=== PATIENT | male | born 1990 | race African-American/Black ===

== ENCOUNTER 2019-05-27 17:49 | Inpatient (IN) | payer OTHER ==
[2019-05-27 18:53] VITALS: BMI 36.8
--- NOTE | 2019-05-27 21:58 | HP ---
CIWA Score - Admission Criteria [facility]ASAS Guidelines: Admission for Medically Managed Detox: Requires at least one of the followin. CIWA greater than 12 2. Seizures within the past 24 hours 3. Delirium tremens within the past 24 hours 4. Hallucinations within the past 24 hours 5. Acute intervention needed for co occurring medical disorder 6. Acute intervention needed for co occurring psychiatric disorder 7. Severe withdrawal that cannot be handled at a lower level of care (continued vomiting, continued diarrhea, abnormal vital signs) requiring intravenous medication and/or fluids 8. Admission ROS [facility] - [facility] Chief Complaint: Seeking admission to Rehab. 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 Patient was transferred from [facility]. This is his first admission to [facility]. He reports prior Rehab. admission at [facility]. He reports medical history of Asthma, seizure, GERD, COPD and Psych history of Depression, anxiety and Bipolar 2. He reports suicide attempt in 2009, 2014 and denies suicidal ideation at this time. Exam Limitations: No Limitations - Ebola screening Have you traveled outside of the country in the last 21 days: No (N) Have you had contact with anyone from an Ebola affected area: No Do you have a fever: No - Review of Systems Constitutional: No Symptoms Reported EENT: reports: No Symptoms Reported Respiratory: reports: No Symptoms reported Cardiac: reports: No Symptoms Reported GI: reports: No Symptoms Reported : reports: No Symptoms Reported Musculoskeletal: reports: No Symptoms Reported Integumentary: reports: No Symptoms Reported Neuro: reports: No Symptoms reported Endocrine: reports: No Symptoms Reported Hematology: reports: No Symptoms Reported Psychiatric: reports: No Sypmtoms Reported, Mood/Affect Appropiate Other Systems: Reviewed and Negative Patient History - Patient Medical History Hx Anemia: No Hx Asthma: Yes (Albuterol) Hx Chronic Obstructive Pulmonary Disease (COPD): Yes (Not on medication) Hx Cancer: No Hx Cardiac Disorders: No Hx Hypertension: No Hx Hypercholesterolemia: No HX Cerebrovascular Accident: No Hx Seizures: Yes (Not on medication) Hx Diabetes: No Hx Gastrointestinal Disorders: Yes Hx Liver Disease: No Hx Genitourinary Disorders: No Hx Sexually Transmitted Disorders: No Hx Renal Disease (ESRD): No Hx Thyroid Disease: No Hx Human Immunodeficiency Virus (HIV): No (Negative -) Hx Hepatitis C: No Hx Depression: Yes (Not on medication) Hx Suicide Attempt: Yes (Attempts in 2009, 2014. Denies suicidal ideation at this time) Hx Bipolar Disorder: Yes Hx Schizophrenia: No Other Medical History: Anxiety - Patient Surgical History Past Surgical History: No Hx Neurologic Surgery: No Hx Cataract Extraction: No Hx Cardiac Surgery: No Hx Lung Surgery: No Hx Abdominal Surgery: No Hx Appendectomy: No Hx Cholecystectomy: No Hx Genitourinary Surgery: No Hx Orthopedic Surgery: No Anesthesia Reaction: No - PPD History Previous Implant?: Yes (PPD POSITIVE. INH FOR 9 MONTHS) Documented Results: Positive w/o proof Implanted On Prior [facility] Admission?: No PPD to be Administered?: No - Reproductive History Patient is a Female of Child Bearing Age (11 -55 yrs old): No (male) - Smoking Cessation Smoking history: Current every day smoker Have you smoked in the past 12 months: Yes Aproximately how many cigarettes per day: 6 Hx Chewing Tobacco Use: No Initiated information on smoking cessation: Yes 'Breaking Loose' booklet given: 05/27/19 - Substance & Tx. History Hx Alcohol Use: No Hx Substance Use: Yes Substance Use Type: Tranquilizers Hx Substance Use Treatment: Yes ([place], [place]) - Substances abused Methamphetamine Other (specify): crystal meth Substance route: Smoking Frequency: Daily Amount used: $200 Age of first use: 19 Date of last use: 05/26/19 Admission Physical Exam BHS - Vital Signs Vital Signs: Vital Signs - 24 hr 05/27/19 18:45 Temperature 97.1 F L Pulse Rate 108 H Respiratory 20 Rate Blood Pressure 120/67 - Physical General Appearance: Yes: Within Normal Limits HEENTM: Yes: Within Normal Limits, EOMI Respiratory: Yes: Lungs Clear, Normal Breath Sounds, No Respiratory Distress Neck: Yes: Within Normal Limits Cardiology: Yes: Tachycardia Abdominal: Yes: Normal Bowel Sounds, Soft Genitourinary: Yes: Within Normal Limits Back: Yes: Normal Inspection Musculoskeletal: Yes: Within Normal Limits Extremities: Yes: Normal Inspection, Normal Range of Motion Neurological: Yes: Within Normal Limits Integumentary: Yes: Within Normal Limits, Warm Lymphatic: Yes: Within Normal Limits - Diagnostic (1) Amphetamine dependence Current Visit: Yes Status: Acute (2) Seizure Current Visit: Yes Status: Chronic (3) Asthma Current Visit: Yes Status: Chronic Qualifiers: Asthma severity: mild Asthma persistence: intermittent (4) GERD (gastroesophageal reflux disease) Current Visit: Yes Status: Chronic Qualifiers: Esophagitis presence: without esophagitis Qualified Code(s): K21.9 - Gastro -esophageal reflux disease without esophagitis (5) COPD (chronic obstructive pulmonary disease) Current Visit: Yes Status: Chronic Qualifiers: Chronic bronchitis type: unspecified (6) PPD positive, treated Current Visit: No Status: Resolved Cleared for Admission S - Detox or Rehab [facility] Level of Care: Observation Bed Claeared for Rehab Admission: Yes Breathalyzer - Breathalyzer Breathalyzer: 0 Urine Drug Screen - Test Device Lot number: [id number] Expiration date: 01/21/21 - Control Is test valid?: Yes - Results Drug screen NEGATIVE: No Urine drug screen results: MET-Methamphetamine, AMP-Amphetamines Inpatient Rehab Admission - Rehab Decision to Admit Inpatient rehab admission?: Yes - Initial Determination Are CD services needed?: No Free of communicable disease: Yes Not in need of hospitalization: Yes - Rehab Admission Criteria Previous failed treatment: Yes Poor recovery environment: Yes Comorbidities: Yes Lacks judgement: No Patient is meeting Inpatient Rehab admission criteria:: Yes
[2019-05-27] MEDS ORDERED: ACETAMINOPHEN 325 MG TABLET (FP) PO PRN (22:15)
[2019-05-27] MEDS ORDERED: NICOTINE POLACRILEX 2 MG GUM BUC PRN (22:15)
[2019-05-27] MEDS ORDERED: P-EPHED 60MG/TRIPROLIDI 2.5MG TABLET PO PRN (22:15)
[2019-05-27] MEDS ORDERED: LOPERAMIDE HCL 2 MG CAPSULE PO PRN (22:15)
[2019-05-27] MEDS ORDERED: MAGNESIUM HYDROX 2400MG/30ML ORAL SUSPENSION 30 ML CUP PO PRN (22:15)
[2019-05-27] MEDS ORDERED: MENTHOL/PHENOL 1 EACH UD MM PRN (22:15)
[2019-05-27] MEDS ORDERED: guaiFENesin 200 MG/10 ML 10 ML UNIT-DOSE CUPS PO PRN (22:15)
[2019-05-27] MEDS ORDERED: MAGNESIUM CITRATE 300 ML BOTTLE PO PRN (22:15)
[2019-05-28 10:34] LABS: EPI CELLS 1.3 /HPF (0-5/HPF); HYALINE CASTS 19 /lpf (0-8); PH,URINE 6.5 (5.0-8.0); URINE APPEARANCE CLEAR; URINE BACTERIA 3.3 /hpf (NEGATIVE); URINE BILIRUBIN NEGATIVE (NEGATIVE); URINE COLOR YELLOW; URINE GLUCOSE (UA) NEGATIVE (NEGATIVE); URINE KETONE NEGATIVE (NEGATIVE); URINE LEUK ESTERASE TRACE (NEGATIVE); URINE NITRITE NEGATIVE (NEGATIVE); URINE PROTEIN TRACE (NEGATIVE); URINE RBC 3 /hpf (0-4); URINE UROBILINOGEN 0.2 mg/dL (0.2-1.0); URINE WBC 9 /hpf (0-5)
--- NOTE | 2019-05-28 10:35 | EKG ---
Test Reason : Blood Pressure : / mmHG Vent. Rate : 088 BPM Atrial Rate : 088 BPM P-R Int : 142 ms QRS Dur : 086 ms QT Int : 330 ms P-R-T Axes : 051 032 040 degrees QTc Int : 399 ms NORMAL SINUS RHYTHM WITH SINUS ARRHYTHMIA EARLY REPOLARIZATION NORMAL ECG NO PREVIOUS ECGS AVAILABLE Confirmed by PHYLLIS BLANC MD ([id number]) on 05/28/2019 10:34:49 AM Referred By: Confirmed By:PHYLLIS BLANC MD
[2019-05-28] MEDS: PRENATAL VITAMINS W/ FOLIC ACID TABLET (FP) PO SCH (10:45)
[2019-05-28] MEDS: NICOTINE 14 MG/24 HOURS TOPICAL PATCH TD SCH (10:45)
[2019-05-28 11:17] LABS: URINE CRYSTALS CALCIUM OXALATE=1+ /hpf
[2019-05-28] MEDS: THIAMINE HCL 100 MG TABLET (FP) PO SCH (21:11)
[2019-05-28] MEDS: MELATONIN 5 MG TABLETS PO PRN (21:11)
[2019-05-29] MEDS: NICOTINE 14 MG/24 HOURS TOPICAL PATCH TD SCH (09:32)
[2019-05-29] MEDS: PRENATAL VITAMINS W/ FOLIC ACID TABLET (FP) PO SCH (09:32)
[2019-05-29 12:20] LABS: HEMATOCRIT 43.6 % (35.4-49); HEMOGLOBIN 14.6 GM/dL (11.7-16.9); MCH 29.5 pg (25.7-33.7); MCHC 33.4 g/dl (32.0-35.9); MEAN CELL VOLUME 88.2 fl (80-96); MEAN PLT VOLUME 8.3 fl (7.5-11.1); PLATELET COUNT 210 K/MM3 (134-434); RBC 4.94 M/mm3 (4.00-5.60); RDW 14.2 % (11.9-15.9)
[2019-05-29 12:41] LABS: ALBUMIN 3.2 g/dl (3.4-5.0); BILIRUBIN,TOTAL 0.2 mg/dL (0.2-1); BLOOD UREA NITROGEN 11.3 mg/dL (7-18); CALCIUM 8.8 mg/dL (8.5-10.1); CREATININE 0.9 mg/dL (0.55-1.3); POTASSIUM 4.6 mmol/L (3.5-5.1); TOT PROT 6.8 g/dl (6.4-8.2)
[2019-05-29] MEDS: MELATONIN 5 MG TABLETS PO PRN (21:35)
[2019-05-29] MEDS: THIAMINE HCL 100 MG TABLET (FP) PO SCH (21:35)
--- NOTE | 2019-05-30 08:54 | PN ---
[facility] Progress Note Note: Vital Signs Temperature 97.7 F 05/29/19 06:53 Pulse Rate 102 H 05/29/19 06:53 Respiratory Rate 18 05/30/19 03:30 Blood Pressure 130/76 05/29/19 06:53 O2 Sat by Pulse Oximetry (%) Laboratory Tests 05/28/19 05/29/19 05/29/19 08:15 09:15 09:15 WBC 5.0 RBC 4.94 Hgb 14.6 Hct 43.6 MCV 88.2 MCH 29.5 MCHC 33.4 RDW 14.2 Plt Count 210 MPV 8.3 Sodium 141 Potassium 4.6 Chloride 107 Carbon Dioxide 31 Anion Gap 3 L BUN 11.3 Creatinine 0.9 Est GFR (CKD-EPI)AfAm 132.37 Est GFR (CKD-EPI)NonAf 114.21 Random Glucose 83 Calcium 8.8 Total Bilirubin 0.2 AST 7 L ALT 19 Alkaline Phosphatase 62 Total Protein 6.8 Albumin 3.2 L Urine Color Yellow Urine Appearance Clear Urine pH 6.5 Ur Specific [place] 1.024 Urine Protein Trace Urine Glucose (UA) Negative Urine Ketones Negative Urine Blood Negative Urine Nitrite Negative Urine Bilirubin Negative Urine Urobilinogen 0.2 Ur Leukocyte Esterase Trace Urine WBC (Auto) 9 Urine RBC (Auto) 3 Urine Casts (Auto) 19 U Epithel Cells (Auto) 1.3 Urine Crystals (Auto) Calcium oxalate=1+ Urine Bacteria (Auto) 3.3 RPR Titer 05/29/19 09:15 WBC RBC Hgb Hct MCV MCH MCHC RDW Plt Count MPV Sodium Potassium Chloride Carbon Dioxide Anion Gap BUN Creatinine Est GFR (CKD-EPI)AfAm Est GFR (CKD-EPI)NonAf Random Glucose Calcium Total Bilirubin AST ALT Alkaline Phosphatase Total Protein Albumin Urine Color Urine Appearance Urine pH Ur Specific [place] Urine Protein Urine Glucose (UA) Urine Ketones Urine Blood Urine Nitrite Urine Bilirubin Urine Urobilinogen Ur Leukocyte Esterase Urine WBC (Auto) Urine RBC (Auto) Urine Casts (Auto) U Epithel Cells (Auto) Urine Crystals (Auto) Urine Bacteria (Auto) RPR Titer Nonreactive Labs reviewed. UA + calcium Oxalate +1. Patient admitted to rehab for Methamphetamine dependence. UA to be repeated 06/03/19.
[2019-05-30] MEDS: NICOTINE 14 MG/24 HOURS TOPICAL PATCH TD SCH (09:57)
[2019-05-30] MEDS: PRENATAL VITAMINS W/ FOLIC ACID TABLET (FP) PO SCH (09:59)
[2019-05-30 15:45] LABS: PH,URINE 5.5 (5.0-8.0); URINE APPEARANCE CLEAR; URINE BILIRUBIN NEGATIVE (NEGATIVE); URINE COLOR YELLOW; URINE GLUCOSE (UA) NEGATIVE (NEGATIVE); URINE KETONE NEGATIVE (NEGATIVE); URINE LEUK ESTERASE NEGATIVE (NEGATIVE); URINE NITRITE NEGATIVE (NEGATIVE); URINE PROTEIN NEGATIVE (NEGATIVE); URINE UROBILINOGEN 0.2 mg/dL (0.2-1.0)
[2019-05-30] MEDS: THIAMINE HCL 100 MG TABLET (FP) PO SCH (21:07)
[2019-05-30] MEDS: MELATONIN 5 MG TABLETS PO PRN (21:07)
[2019-05-31] MEDS: NICOTINE 14 MG/24 HOURS TOPICAL PATCH TD SCH (10:10)
[2019-05-31] MEDS: PRENATAL VITAMINS W/ FOLIC ACID TABLET (FP) PO SCH (10:10)
[2019-05-31] MEDS: THIAMINE HCL 100 MG TABLET (FP) PO SCH (21:10)
[2019-05-31] MEDS: MELATONIN 5 MG TABLETS PO PRN (21:10)
[2019-06-01] MEDS: NICOTINE 14 MG/24 HOURS TOPICAL PATCH TD SCH (10:16)
[2019-06-01] MEDS: PRENATAL VITAMINS W/ FOLIC ACID TABLET (FP) PO SCH (10:16)
[2019-06-01] MEDS: THIAMINE HCL 100 MG TABLET (FP) PO SCH (21:15)
[2019-06-01] MEDS: MELATONIN 5 MG TABLETS PO PRN (21:15)
[2019-06-02] MEDS: NICOTINE 14 MG/24 HOURS TOPICAL PATCH TD SCH (09:49)
[2019-06-02] MEDS: PRENATAL VITAMINS W/ FOLIC ACID TABLET (FP) PO SCH (09:50)
[2019-06-02] MEDS: IBUPROFEN 400 MG TABLET (FP) PO PRN ×2 (10:33→16:42)
[2019-06-02] MEDS: THIAMINE HCL 100 MG TABLET (FP) PO SCH (21:39)
[2019-06-02] MEDS: MELATONIN 5 MG TABLETS PO PRN (21:39)
[2019-06-03] MEDS: PRENATAL VITAMINS W/ FOLIC ACID TABLET (FP) PO SCH (10:39)
[2019-06-03] MEDS: NICOTINE 14 MG/24 HOURS TOPICAL PATCH TD SCH (10:39)
[2019-06-03] MEDS: MAG HYDROX/AL HYDROX/SIMETH 30 ML UNIT-DOSE CUP PO PRN ×2 (11:36→22:18)
[2019-06-03] MEDS: MELATONIN 5 MG TABLETS PO PRN (22:18)
[2019-06-03] MEDS: THIAMINE HCL 100 MG TABLET (FP) PO SCH (22:18)
[2019-06-04] MEDS: NICOTINE 14 MG/24 HOURS TOPICAL PATCH TD SCH (11:55)
[2019-06-04] MEDS: PRENATAL VITAMINS W/ FOLIC ACID TABLET (FP) PO SCH (11:55)
[2019-06-04] MEDS: THIAMINE HCL 100 MG TABLET (FP) PO SCH (21:01)
[2019-06-04] MEDS: MELATONIN 5 MG TABLETS PO PRN (21:01)
[2019-06-04] MEDS: MAG HYDROX/AL HYDROX/SIMETH 30 ML UNIT-DOSE CUP PO PRN (21:03)
[2019-06-05] MEDS: PRENATAL VITAMINS W/ FOLIC ACID TABLET (FP) PO SCH (10:51)
[2019-06-05] MEDS: IBUPROFEN 400 MG TABLET (FP) PO PRN (10:52)
[2019-06-05] MEDS: NICOTINE 14 MG/24 HOURS TOPICAL PATCH TD SCH (10:52)
[2019-06-05] MEDS: MELATONIN 5 MG TABLETS PO PRN (21:09)
[2019-06-05] MEDS: THIAMINE HCL 100 MG TABLET (FP) PO SCH (21:10)
[2019-06-06] MEDS ORDERED: PT OWN MED DRAWER 7, Y5N ONE (09:12)
[2019-06-06] MEDS: PRENATAL VITAMINS W/ FOLIC ACID TABLET (FP) PO SCH (10:10)
[2019-06-06] MEDS: NICOTINE 14 MG/24 HOURS TOPICAL PATCH TD SCH (10:11)
[2019-06-06] MEDS: MELATONIN 5 MG TABLETS PO PRN (21:10)
[2019-06-06] MEDS: THIAMINE HCL 100 MG TABLET (FP) PO SCH (21:10)
[2019-06-07] MEDS: NICOTINE 14 MG/24 HOURS TOPICAL PATCH TD SCH (10:18)
[2019-06-07] MEDS: PRENATAL VITAMINS W/ FOLIC ACID TABLET (FP) PO SCH (10:18)
[2019-06-07] MEDS: THIAMINE HCL 100 MG TABLET (FP) PO SCH (21:34)
[2019-06-07] MEDS: MELATONIN 5 MG TABLETS PO PRN (21:34)
[2019-06-08] MEDS: PRENATAL VITAMINS W/ FOLIC ACID TABLET (FP) PO SCH (10:28)
[2019-06-08] MEDS: NICOTINE 14 MG/24 HOURS TOPICAL PATCH TD SCH (10:28)
[2019-06-08] MEDS: MAG HYDROX/AL HYDROX/SIMETH 30 ML UNIT-DOSE CUP PO PRN ×2 (11:00→19:41)
[2019-06-08] MEDS: MELATONIN 5 MG TABLETS PO PRN (21:12)
[2019-06-08] MEDS: THIAMINE HCL 100 MG TABLET (FP) PO SCH (21:12)
[2019-06-09] MEDS: NICOTINE 14 MG/24 HOURS TOPICAL PATCH TD SCH (10:07)
[2019-06-09] MEDS: PRENATAL VITAMINS W/ FOLIC ACID TABLET (FP) PO SCH (10:07)
[2019-06-09] MEDS ORDERED: COLLOIDAL OATMEAL 1 BAR EACH TP PRN (10:32)
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
[2019-06-09] MEDS: MELATONIN 5 MG TABLETS PO PRN (21:11)
[2019-06-09] MEDS: THIAMINE HCL 100 MG TABLET (FP) PO SCH (21:11)
[2019-06-09] MEDS: IBUPROFEN 400 MG TABLET (FP) PO PRN (22:52)
[2019-06-10 06:45] VITALS: BP 109/71; PULSE 98; TEMP 97.7
[2019-06-10] MEDS: PRENATAL VITAMINS W/ FOLIC ACID TABLET (FP) PO SCH (09:18)
[2019-06-10] MEDS: NICOTINE 14 MG/24 HOURS TOPICAL PATCH TD SCH (09:18)
--- NOTE | 2019-06-10 10:13 | DS ---
[facility] Rehab Discharge Summary - [facility] Rehab Discharge Summary Admission Date: 05/27/19 Discharge Date: 06/10/19 - History Additional Comments: Pt is a 29 y/o male with a hx of crystal methamphetamine use disorder admitted to rehab and discharging today. Pertinent Past History: Asthma(no meds) COPD(no meds) Childhood Seizure Hx(no meds) GERD(no meds) Hx PPD+ with treatment Hx Crystal Meth use disorder. - Discharge Physical Exam Vital Signs: Vital Signs Temperature 97.7 F 06/10/19 06:44 Pulse Rate 98 H 06/10/19 06:44 Respiratory Rate 18 06/10/19 06:44 Blood Pressure 109/71 06/10/19 06:44 O2 Sat by Pulse Oximetry (%) Alert o x 3 nad oob ambulating with steady gait cardiac:s1 s2,rrr lungs:cta,jenny abdomen:soft,+bs,++fatty,nt extremities/skin:no edema,full ROM/weight bearing;skin intact. Pertinent Admission Physical Exam Findings: Laboratory Tests 05/28/19 05/29/19 05/29/19 08:15 09:15 09:15 WBC 5.0 RBC 4.94 Hgb 14.6 Hct 43.6 MCV 88.2 MCH 29.5 MCHC 33.4 RDW 14.2 Plt Count 210 MPV 8.3 Sodium 141 Potassium 4.6 Chloride 107 Carbon Dioxide 31 Anion Gap 3 L BUN 11.3 Creatinine 0.9 Est GFR (CKD-EPI)AfAm 132.37 Est GFR (CKD-EPI)NonAf 114.21 Random Glucose 83 Calcium 8.8 Total Bilirubin 0.2 AST 7 L ALT 19 Alkaline Phosphatase 62 Total Protein 6.8 Albumin 3.2 L Urine Color Yellow Urine Appearance Clear Urine pH 6.5 Ur Specific [place] 1.024 Urine Protein Trace Urine Glucose (UA) Negative Urine Ketones Negative Urine Blood Negative Urine Nitrite Negative Urine Bilirubin Negative Urine Urobilinogen 0.2 Ur Leukocyte Esterase Trace Urine WBC (Auto) 9 Urine RBC (Auto) 3 Urine Casts (Auto) 19 U Epithel Cells (Auto) 1.3 Urine Crystals (Auto) Calcium oxalate=1+ Urine Bacteria (Auto) 3.3 RPR Titer 05/29/19 05/30/19 09:15 10:40 WBC RBC Hgb Hct MCV MCH MCHC RDW Plt Count MPV Sodium Potassium Chloride Carbon Dioxide Anion Gap BUN Creatinine Est GFR (CKD-EPI)AfAm Est GFR (CKD-EPI)NonAf Random Glucose Calcium Total Bilirubin AST ALT Alkaline Phosphatase Total Protein Albumin Urine Color Yellow Urine Appearance Clear Urine pH 5.5 Ur Specific [place] 1.023 Urine Protein Negative Urine Glucose (UA) Negative Urine Ketones Negative Urine Blood Negative Urine Nitrite Negative Urine Bilirubin Negative Urine Urobilinogen 0.2 Ur Leukocyte Esterase Negative Urine WBC (Auto) Urine RBC (Auto) Urine Casts (Auto) U Epithel Cells (Auto) Urine Crystals (Auto) Urine Bacteria (Auto) RPR Titer Nonreactive - Treatment Discharge Condition: Discharge condition good Hospital Course: Rehabilitated safely and responded well CD aftercare referral accepted to [facility]. OP pending bed availability in [facility]. - Medication Discharge Medications: Ambulatory Orders Zolpidem Tartrate [Ambien] 5 mg PO DAILY 05/27/19 - Medication-Assisted Treatment (MAT) Medication-Assisted Treatment (MAT): No - Discharge Instructions Diet, activity, other medical instructions: Diet:Regular Activity: oob ad artem Other medical instructions:follow up with CD aftercare referral as scheduled at [facility]. Follow up with primary care at [facility] for medical management as needed. D/w patient the need to maintain a PCP when living arrangement is stable. However, to seek help in the nearest ER when needed. - Diagnosis (1) Amphetamine dependence Current Visit: Yes Status: Chronic (2) Asthma Current Visit: Yes Status: Chronic Qualifiers: Asthma severity: unspecified severity Asthma persistence: unspecified Asthma complication type: unspecified Qualified Code(s): J45.909 - Unspecified asthma, uncomplicated (3) COPD (chronic obstructive pulmonary disease) Current Visit: Yes Status: Chronic Qualifiers: Chronic bronchitis type: unspecified (4) GERD (gastroesophageal reflux disease) Current Visit: Yes Status: Chronic Qualifiers: Esophagitis presence: esophagitis presence not specified Qualified Code(s) : K21.9 - Gastro-esophageal reflux disease without esophagitis (5) Seizure Current Visit: Yes Status: Suspected (6) PPD positive, treated Current Visit: Yes Status: Resolved - Follow-up Referral Minutes to complete discharge: 20 - AMA Did Patient Leave Against Medical Advice: No
== END 2019-06-10 11:15 | disposition home or self-care (01) | DRG 772 ==
LOC: YASAS 17:49 → Y3W 22:09 → Y5N 06-03 19:55
PROVIDERS: ADMIT Neuromusculoskeletal Medicine & OMM; ATTEND Neuromusculoskeletal Medicine & OMM
PROC: HZ42ZZZ Group Counseling for Substance Abuse Treatment, Cognitive-Behavioral (ICD-10-PCS; principal; 2019-05-27)
DX: F15.20 Other stimulant dependence, uncomplicated (principal); J45.909 Unspecified asthma, uncomplicated; K21.9 Gastro-esophageal reflux disease without esophagitis; Z86.69 Personal history of other diseases of the nervous system and sense organs; Z88.8 Allergy status to other drugs, medicaments and biological substances; Z91.018 Allergy to other foods; Z91.5 Personal history of self-harm
CPT/HCPCS: 36415; 71046-TC-FY; 80053; 81003; 85027; 86593; 93005; 93010